=== PATIENT | male | born 1950 | race Caucasian/White ===

== ENCOUNTER 2023-08-05 15:18 | Outpatient (CLI) | payer OTHER | END 2023-08-05 15:19 | disposition short-term general hospital (02) | LOC: EMS 15:18 | DX: T40.2X1A Poisoning by other opioids, accidental (unintentional), initial encounter (principal); R41.0 Disorientation, unspecified | CPT/HCPCS: A0425; A0429; A0888 ==

== ENCOUNTER 2024-04-19 12:56 | Outpatient (CLI) | payer OTHER | END 2024-04-19 23:59 | disposition short-term general hospital (02) | LOC: EMS 12:56 | DX: R41.0 Disorientation, unspecified (principal); R50.9 Fever, unspecified | CPT/HCPCS: A0425; A0429 ==